=== PATIENT | male | born 1960 | race Caucasian/White ===

== ENCOUNTER → 2020-05-20 14:49 | Outpatient (CLI) | payer BC, SELFPAY ==
--- NOTE | ~2020-05-20 | XR_ITS ---
EXAMINATION: [id number] EXAM DATE: 05/20/2020 15:05 INDICATION: Cervicalgia. TECHNIQUE: Cervical spine frontal, lateral, lateral swimmers, and open-mouth odontoid projections. There is no prior study for comparison. FINDINGS: There is cervical fusion C6-7 with anterior plate, interbody device. There is mild disc di sease at C5-6. The vertebral body and disc heights are otherwise well maintained. Suspect mild to mod erate cervical arthropathy. The odontoid process is intact. The lateral masses of C1 line up with C2 . Prevertebral soft tissue and pre-dens space are within normal limits. IMPRESSION: 1. Intact C6-7 fusion. 2. Mild to moderate arthropathy, mild disc disease. Reviewed, dictated and finalized at location A.
== END ==
PROVIDERS: PCP Family Medicine; Visit Provider Neurological Surgery
DX: M54.2 Cervicalgia (principal); Z98.1 Arthrodesis status; M50.923 Unspecified cervical disc disorder at C6-C7 level
CPT/HCPCS: 72040